=== PATIENT | male | born 1980 | race Caucasian/White ===

== ENCOUNTER → 2020-04-17 19:13 | Outpatient (REF) | payer BC, SELFPAY | LOC: HO.SL 19:13 | PROVIDERS: PCP Internal Medicine; Visit Provider Internal Medicine | DX: G47.33 Obstructive sleep apnea (adult) (pediatric) (principal) | CPT/HCPCS: 95811 ==

== ENCOUNTER 2023-06-29 15:45 | Observation (INO) | payer OTHER, SELFPAY ==
--- NOTE | ~2023-06-29 | CT_ITS ---
EXAMINATION: CT head/brain wo IV con CLINICAL INFORMATION: resolved headache/numbness of hand COMPARISON: Noncontrast head CT 12/17/2019. TECHNIQUE: Contiguous axial imaging was performed from the skull base to vertex without intravenous contrast. Sagittal and coronal reformatted images were obtained. This CT examination was performed using dose optimization techniques as appropriate, variously including the following: * Automated exposure control * Adjustment of mA and/or kV according to patient size (this includes techniques or standardized protocols for targeted exams where dose is matched to indication/reason for exam; i.e. extremities or head) Use of iterative reconstruction technique DLP: 710 mGy-cm FINDINGS: No acute osseous or soft tissue abnormality. Mild mucosal thickening of the right maxillary sinus. The mastoid air cells and visualized portions of the paranasal sinuses are otherwise well aerated. There is no evidence of acute intracranial hemorrhage or territorial infarction. No abnormal mass effect or midline shift is seen. Unchanged small right thalamic lacunar infarct. Major to white matter differentiation is otherwise well preserved. No extra-axial fluid collections are identified. No hydrocephalus. No significant volume loss. Patchy periventricular and deep white matter hypoattenuation is consistent with mild small vessel ischemic changes. CT/CT head/brain wo IV con IMPRESSION: No acute intracranial abnormality including hemorrhage, mass effect, hydrocephalus, or acute territorial edematous infarction.
--- NOTE | ~2023-06-29 | MR_ITS ---
EXAMINATION: MR BRAIN WITHOUT CONTRAST CLINICAL INFORMATION: Left face and arm tingling. COMPARISON: CT head from 06/29/2023. TECHNIQUE: MRI of the brain was obtained using routine sequences without contrast. FINDINGS: No focal restricted diffusion is demonstrated to suggest acute or subacute cerebral ischemia. Chronic lacunar infarct of the right thalamus with hemosiderin staining. No evidence of acute hemorrhagic products on heme-sensitive imaging. Few nonspecific scattered periventricular and deep white matter T2 FLAIR hyperintensities. Proportional prominence of the ventricles and sulcal spaces without evidence of obstructive hydrocephalus. No abnormal mass effect. No midline shift. Normal appearance of the pituitary gland. Normal positioning of the cerebellar tonsils. Normal arterial and venous vascular flow voids are present. Normal, homogeneous marrow signal. Mild mucosal thickening of the paranasal sinuses. No signal abnormalities within the mastoids. MR/MR head/brain wo con IMPRESSION: 1. No acute intracranial abnormalities. 2. Chronic lacunar infarct of the right thalamus. Mild nonspecific white matter changes.
[2023-06-29 15:51] VITALS: BP 166/109; PULSE 95; RESP 18; TEMP 36.6; O2SAT 98; BMI 35.3
--- NOTE | 2023-06-29 15:56 | ECG_ITS ---
Test Reason : nuro Blood Pressure : / mmHG Vent. Rate : 095 BPM Atrial Rate : 095 BPM P-R Int : 152 ms QRS Dur : 094 ms QT Int : 414 ms P-R-T Axes : 033 -27 156 degrees QTc Int : 520 ms Normal sinus rhythm Moderate voltage criteria for LVH, may be normal variant ( R in aVL , Neil product ) Cannot rule out Anterior infarct , age undetermined T wave abnormality, consider lateral ischemia Prolonged QT Abnormal ECG When compared with ECG of 13-NOV-2012 13:41, Inverted T waves have replaced nonspecific T wave abnormality in Lateral leads QT has lengthened Referred By: Hiram Kemp Electronically Signed By:Malik Gurrola
--- NOTE | 2023-06-29 16:01 | ED_ITS ---
HPI - General Adult General Chief complaint: Neuro Symptoms/Deficit Stated complaint: High Blood pressure/thinks he had a stroke? Time Seen by Provider: 06/29/23 17:47 Source: patient Mode of arrival: ambulatory Limitations: no limitations History of Present Illness HPI narrative: Patient comes to the emergency room complaining of a migraine headache. Patient states he has right-sided headache, photophobia, at the same time patient had numbness tingling of the left hand which self resolved as the headache started to become better. Patient states that currently he has no numbness or tingling in the face or extremities, but patient is still complaining of a migraine headache. Patient states he did not take any medication prior to arrival. Related Data Allergies Allergy/AdvReac Type Severity Reaction Status Date / Time No Known Allergies Allergy Unverified 02/03/20 16:50 Review of Systems 2 Review of Systems: Constitutional : No Weight loss, No Fever, No Chills, No Night Sweats, No Fatigue, No Malaise ENT/Mouth : No Hearing loss, No Ear Pain, No Nasal Congestion, No Sinus Pain, No Hoarseness, No sore throat, No Rhinorrhea, No Swallowing Difficulty Eyes: No Eye Pain, No Swelling, No Redness, No Foreign Body, No Discharge, No Vision Changes Cardiovascular : No Chest Pain, No SOB, No Dyspnea on Exertion, No Orthopnea, No Edema, No Palpitations Respiratory : No Cough, No Sputum, No Wheezing, No Smoke Exposure, No Dyspnea Gastrointestinal : No Nausea, No Vomiting, No Diarrhea, No Constipation, No abdominal Pain, No Hematochezia, No Melena Genitourinary : no irregular bleeding, No Dysuria, No Urinary Frequency, No Hematuria, No Urinary Incontinence, No Urgency, No Flank Pain, No Urinary Flow Changes, No Hesitancy Musculoskeletal : No joint pain, No Myalgias, No Joint Swelling Skin : No Skin Lesions, No rash Neuro : Earlier today, patient had facial paresthesias, numbness and tingling in the left arm which started to improve as the headache started to improve Psych : No Anxiety/Panic, No Depression, No SI/HI/AH/VH, No Social Issues, Heme/Lymph: No Bruising, No Bleeding,No Lymphadenopathy Endocrine : No Polyuria, No Polydipsia, No Temperature Intolerance PMFSH Past Medical History Medical History Migraine Social History Social History Use of substances other than those prescribed or required for medical reasons: No Advance Directives: No Advance Directives Information Provided: No Physical Exam ED Vital Signs: Vital Signs - 24 hr 06/29/23 15:51 06/29/23 19:13 Temperature 98 F 98.0 F Pulse Rate 95 79 Respiratory Rate 18 16 Blood Pressure 166/109 H 137/96 H Pulse Oximetry 98 98 Oxygen Delivery Method Room Air Room Air BMI result Body Mass Index 35.3 Const Other: Appearance: Alert. Oriented X3. No acute distress. Eyes: Pupils equal, round and reactive to light. Photophobia ENT: Pharynx normal. Neck: Normal inspection. Neck supple. No lymph nodes noted. No crepitus CVS: Normal heart rate and rhythm. Pulses normal. Normal S1 and S2 Respiratory: No respiratory distress. Breath sounds normal. No Wheezing. No rales Abdomen: Soft and nontender. No rigidity. No distention. Skin: Skin warm and dry. Normal skin color. Normal skin turgor. Extremities: No lower extremity edema. No Lacerations. No Rash Neuro: Oriented X 3. No motor deficit. No sensory deficit. Moving all extremities. No slurred speech. CN 2 through 12 grossly intact Psych: calm, cooperative, normal affect NIH Stroke Scale Internal: Initial- Upon Arrival Level of Consciousness: Alert Level of Consciousness Questions: Answers both questions correctly Level of Consciousness Commands: Performs both tasks correctly Best Gaze: Normal Visual: No visual loss Facial Palsy: Normal Motor Arm (Right): No drift Motor Arm (Left): No drift Motor Leg (Right): No drift Motor Leg (Left): No drift Limb Ataxia: Absent Sensory: Normal Best Language: No aphasia Dysarthia: Normal Extinction and Inattention: No abnormality Score: 0 Course Course Course Narrative: RmE: 42-year-old male history of hypertension and migraines presents to the ED for resolved symptoms of left-sided headache leg facial numbness and left thumb index and ring finger numbness only. Patient states this occurred while at home when he was about to go to sleep and lasted only for 10 minutes and resolved. Patient presently asymptomatic. Patient denies any chest pain or shortness of breath. Neuro exam totally intact. NIH score is 0. Possibly complex migraine exacerbation. Case discussed with Dr. Murry who agrees possibly more migraine exacerbation and not stroke. We will do labs and dry head CT scan. No head CTA Medications Administered Discontinued Medications Generic Name Dose Route Start Last Admin Trade Name Remberto PRN Reason Stop Dose Admin Diphenhydramine HCl 25 mg 06/29/23 17:56 06/29/23 18:11 Diphenhydramine Hcl 50 Mg/Ml Vial IVPUSH 06/29/23 17:57 25 mg ONCE ONE Administration Sodium Chloride 1,000 mls @ 999 mls/hr 06/29/23 17:56 06/29/23 19:09 Ns IVCONT 06/29/23 18:56 Infused .Q1H1M ONE Infusion Metoclopramide HCl 10 mg 06/29/23 17:56 06/29/23 18:11 Metoclopramide Hcl 10 Mg/2 Ml Vial IVPUSH 06/29/23 17:57 10 mg ONCE ONE Administration Morphine Sulfate 2 mg 06/29/23 17:56 06/29/23 18:10 Morphine Sulfate 2 Mg/Ml Cartridge IM 06/29/23 17:57 2 mg ONCE ONE Administration Protocol Medical Decision Making Medical Decision Making MDM Narrative: -patient's NIH score 0 -of patient's symptoms have resolved. Given the history of stroke-like symptoms along with a migraine headache, this was likely secondary to the migraine rather than a CVA/TIA -as the headache started to improve I would self, neurological symptoms also improved -at this time, patient only has a headache, no other neuro deficits or symptoms -patient receiving IV fluids, IV morphine, Reglan and Benadryl -my interpretation of labs, normal hemoglobin, chemistry shows a creatinine of 2.09. According to the patient, he is known to have only 1 kidney. 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 -patient states that to his knowledge, he has never had abnormal kidney labs even with his single kidney. Today, labs are elevated. We will hydrate the patient as mentioned above, and then repeat creatinine -my interpretation of CT scan of the head: No intracranial bleed, no obvious acute territorial infarction -after IV fluids, patient's creatinine did not improve much. I discussed the labs with the patient. Patient is surprised that his creatinine is elevated as he has no knowledge of this being elevated. -patient only has 1 kidney, I discussed the patient with Dr. Sales from the Medicine team, patient being admitted. Differential Diagnosis Differential Diagnoses: The differential diagnosis associated with the presentation includes (Migraine headache, TIA, CVA) Admission/Observation Consideration of admission/observation: Escalation of care including admission/observation considered (Given patient's symptoms, admission was considered) Lab Data MDM Lab Attestation statement: I reviewed the patient's lab results. 06/29/23 16:23 06/29/23 19:12 Labs: Lab Results 06/29/23 06/29/23 Range/Units 16:23 19:12 WBC 7.7 (4.8-10.8) X10*3/uL RBC 4.95 (4.60-5.80) X10*6/uL Hgb 15.1 (14.0-18.0) g/dl Hct 42.8 (42.0-52.0) % MCV 86.5 (80.0-98.0) fL MCH 30.5 (27.0-33.0) pg MCHC 35.3 (31.0-36.0) g/dl RDW 12.2 (11.0-16.0) % Plt Count 360 (160-400) X10*3/uL MPV 9.7 (9.4-12.4) fL Immature Gran % (Auto) 0.3 (0.0-0.4) % Neut % (Auto) 76.6 H (45-73) % Lymph % (Auto) 15.9 L (20-40) % [place] % (Auto) 6.1 (2-11) % Eos % (Auto) 0.6 (0-4) % Baso % (Auto) 0.5 (0-2) % Lymph # (Auto) 1.2 (1.2-4.9) X10*3/uL [place] # (Auto) 0.5 (0.1-1.2) X10*3/uL Eos # (Auto) 0.1 (0.0-0.4) X10*3/uL Baso # (Auto) 0.0 (0.0-0.2) X10*3/uL Abs Immat Gran (auto) 0.02 (0.00-0.03) X10*3/uL Absolute Neuts (auto) 5.9 (2.0-8.3) x10*3/uL Absolute Nucleated RBC 0.000 (0.0-0.012) X10*3/uL Nucleated RBC % (auto) 0.0 (0.0-0.2) /100WBC PT 12.6 (11.1-13.3) SEC INR 1.0 (0.9-1.1) APTT 54.6 H (26.0-36.8) SEC Sodium 141 143 (135-145) mmol/L Potassium 3.3 3.4 (3.3-5.1) mmol/L Chloride 105 106 (96-108) mmol/L Carbon Dioxide 25 26 (22-29) mmol/L Anion Gap 14 14 (12-20) BUN 21 H 22 H (9-16) mg/dL Creatinine 2.09 H 1.91 H (0.5-1.4) mg/dL Estim Creat Clear Calc 48.6 53.1 Estimated GFR 35 39 Random Glucose 107 70 (60-115) mg/dL Calcium 8.9 8.6 (8.4-10.2) mg/dL Total Bilirubin 0.2 (0.0-1.0) mg/dL AST 15 (5-37) U/L ALT 20 (0-40) U/L Alkaline Phosphatase 69 (39-117) U/L Troponin I High Sens 18.3 (<3.5-35.0) ng/L Total Protein 6.6 (6.5-8.0) g/dL Albumin 3.4 L (3.5-5.0) g/dL Independent Interpretation I performed an independent interpretation of an: CT Scan Radiology Impression Discussion of test interpretation with radiology: I have reviewed the radiologist's reading. Radiologist Impression: INDINGS: No acute osseous or soft tissue abnormality. Mild mucosal thickening of the right maxillary sinus. The mastoid air cells and visualized portions of the paranasal sinuses are otherwise well aerated. There is no evidence of acute intracranial hemorrhage or territorial infarction. No abnormal mass effect or midline shift is seen. Unchanged small right thalamic lacunar infarct. Major to white matter differentiation is otherwise well preserved. No extra-axial fluid collections are identified. No hydrocephalus. No significant volume loss. Patchy periventricular and deep white matter hypoattenuation is consistent with mild small vessel ischemic changes. CT/CT head/brain wo IV con IMPRESSION: No acute intracranial abnormality including hemorrhage, mass effect, hydrocephalus, or acute territorial edematous infarction. Critical Care Time Critical Care Time Critical Care Time: Yes Total Critical Care Time: 75 Attestation: I have personally provided critical care time. Time includes review of lab data, radiology results, discussion with consultants, and monitoring for potential decompensation. Intervention performed as documented. Discharge Plan Discharge Clinical Impression: Migraine, Brain TIA, TORITO (acute kidney injury) Patient Disposition: Admitted As Inpatient
[2023-06-29 16:28] LABS: Basophils Percent Auto 0.5 % (0-2); Eosinophils Absolute Auto 0.1 X10*3/uL (0.0-0.4); Eosinophils Percent Auto 0.6 % (0-4); Hematocrit 42.8 % (42.0-52.0); Hemoglobin 15.1 g/dl (14.0-18.0); Imm Gran Abs Auto 0.02 X10*3/uL (0.00-0.03); Imm Gran Pct Auto 0.3 % (0.0-0.4); Lymphocytes Absolute Auto 1.2 X10*3/uL (1.2-4.9); Lymphocytes Percent Auto 15.9 % (20-40); MANUAL DIFF FLAG NO; Mean Corpuscular HGB Conc 35.3 g/dl (31.0-36.0); Mean Corpuscular Hemoglobin 30.5 pg (27.0-33.0); Mean Corpuscular Volume 86.5 fL (80.0-98.0); Mean Platelet Volume 9.7 fL (9.4-12.4); Monocytes Absolute Auto 0.5 X10*3/uL (0.1-1.2); Monocytes Percent Auto 6.1 % (2-11); Neutrophils Absolute Auto 5.9 x10*3/uL (2.0-8.3); Neutrophils Percent Auto 76.6 % (45-73); Platelet Count 360 X10*3/uL (160-400); Red Blood Count 4.95 X10*6/uL (4.60-5.80); Red Cell Distribution Width 12.2 % (11.0-16.0); White Blood Count 7.7 X10*3/uL (4.8-10.8)
[2023-06-29 16:35] LABS: Prothrombin Time 12.6 SEC (11.1-13.3)
[2023-06-29 16:37] LABS: Partial Thromboplastin Time 54.6 SEC (26.0-36.8)
[2023-06-29 16:41] LABS: Alanine Aminotransferase 20 U/L (0-40); Albumin Level 3.4 g/dL (3.5-5.0); Alkaline Phosphatase 69 U/L (39-117); Anion Gap 14 (12-20); Aspartate Amino Transferase 15 U/L (5-37); Bilirubin Total 0.2 mg/dL (0.0-1.0); Blood Urea Nitrogen 21 mg/dL (9-16); Calcium 8.9 mg/dL (8.4-10.2); Carbon Dioxide 25 mmol/L (22-29); Chloride 105 mmol/L (96-108); Creatinine Clr Calc Pharmacy 48.6; Estimated Glomerular Filt Rate 35; Glucose Random 107 mg/dL (60-115); Potassium 3.3 mmol/L (3.3-5.1); Sodium 141 mmol/L (135-145); Total Protein 6.6 g/dL (6.5-8.0)
[2023-06-29 16:48] LABS: Troponin-I High Sensitivity 18.3 ng/L (<3.5-35.0)
[2023-06-29] MEDS: 0.9 % Sodium Chloride 1,000 ML 999 ML IVCONT (18:02)
[2023-06-29] MEDS: Morphine Sulfate 2 MG/ML CARTRIDGE IM (18:10)
[2023-06-29] MEDS: Metoclopramide HCl 10 MG/2 ML VIAL IVPUSH (18:11)
[2023-06-29] MEDS: diphenhydrAMINE HCL 50 MG/ML VIAL 25 MG IVPUSH (18:11)
--- NOTE | 2023-06-29 18:18 | PC.NURSE ---
20g iv inserted YO, fluids and meds given as documented. pt resting quietly at this time.
--- NOTE | 2023-06-29 19:09 | PC.NURSE ---
Assumed care of pt. Pt lying on stretcher, denies any pain or neuro symptoms at this time. Completed MAR reassessment after change of shift. Plan to repeat BMP with completion of IVF, and possible DC.
[2023-06-29 19:13] VITALS: BP 137/96; PULSE 79; RESP 16; TEMP 36.7; O2SAT 98
[2023-06-29 19:34] LABS: Anion Gap 14 (12-20); Blood Urea Nitrogen 22 mg/dL (9-16); Calcium 8.6 mg/dL (8.4-10.2); Carbon Dioxide 26 mmol/L (22-29); Chloride 106 mmol/L (96-108); Creatinine Clr Calc Pharmacy 53.1; Estimated Glomerular Filt Rate 39; Glucose Random 70 mg/dL (60-115); Potassium 3.4 mmol/L (3.3-5.1); Sodium 143 mmol/L (135-145)
[2023-06-29 20:00] VITALS: BP 136/90; PULSE 76; RESP 18; O2SAT 98
[2023-06-29] MEDS: 0.9 % Sodium Chloride 1,000 ML 100 ML IVCONT (21:53)
--- NOTE | 2023-06-29 22:18 | PM.IMHP ---
History of Present Illness Date of Service: 06/29/23 Attending physician on admission: Kedar Panchal Chief Complaint: Headache, facial + hand numbness Robel Medina is a 42 years old man with past medical history significant for CKD stage 3, hypertension and hyperlipidemia presents to ED complaining of right-sided headache associated with left facial and left hand tingling sensation phobia. He denied any, nausea, vomiting, speech difficulty or focal weakness. Gait or swallowing difficulty were not reported. There is no fever or chills. He denied any palpitations, dizziness or loss of consciousness. The cardiopulmonary, gastrointestinal or genitourinary symptoms. He did not report tobacco smoking, alcohol abuse or illicit drug use. In the ED, he was found to have stable vital signs. Last blood pressure is 136/90. Blood workup showed no leukocytosis or electrolyte imbalances. His creatinine to be 2.09 (it was 1.61 in 2019). LFTs are normal. Head CT scan showed no acute. ECG showed normal sinus rhythm her beats per minutes with LVH changes. No obvious acute ischemic changes. QT is prolonged. ED tx: NS 1 L bolus, Benadryl 25 mg IV, more mg IV, Reglan 10 mg IV. Patient is currently asymptomatic (headache completely resolved). Review of Systems Review of Systems: All 12 systems were reviewed and normal except as noted in HPI. [facility] Medical History (Updated 06/29/23 @ 22:46 by Kedar Panchal MD) CKD (chronic kidney disease) stage 3, GFR 30-59 ml/min Restless leg syndrome Hyperlipidemia Essential hypertension Migraine Migraine Social History Use of substances other than those prescribed or required for medical reasons: No Advance Directives: No Advance Directives Information Provided: No Meds Allergies Allergy/AdvReac Type Severity Reaction Status Date / Time No Known Allergies Allergy Unverified 02/03/20 16:50 Active Medications: Current Medications Acetaminophen (Acetaminophen 325 Mg Tablet) 650 mg PO Q6H PRN PRN Reason: Pain, Mild (Pain Scale 1-3) Amlodipine Besylate (Amlodipine Besylate 10 Mg Tablet) 10 mg PO DAILY VERA; Protocol Aspirin (Aspirin Enteric Coated 81 Mg Tablet.) 81 mg PO DAILY VERA Atorvastatin Calcium (Atorvastatin Calcium 80 Mg Tablet) 80 mg PO DAILY VERA Sodium Chloride (Ns) 1,000 mls @ 100 mls/hr IVCONT .Q10H VERA Last Admin: 06/29/23 21:53 Dose: 100 mls/hr Ibuprofen (Ibuprofen 400 Mg Tablet) 400 mg PO Q6H PRN PRN Reason: Migraine Headache Labetalol HCl (Labetalol Hcl 200 Mg Tablet) 200 mg PO BID [facility]; Protocol Ropinirole HCl (Ropinirole Hcl 0.5 Mg Tablet) 0.5 mg PO BEDTIME [facility] Sodium Chloride (0.9 % Sodium Chloride Flush 3 Ml Syringe) 3 ml IVFLUSH QSHIFT [facility] Home Medications Medication Instructions Recorded Confirmed Last Taken Type amlodipine 10 mg tablet 10 mg PO DAILY 06/29/23 06/29/23 Unknown History labetalol 200 mg tablet 200 mg PO BID 06/29/23 06/29/23 Unknown History lisinopril 20 mg tablet 20 mg PO DAILY 06/29/23 06/29/23 Unknown History ropinirole 0.25 mg tablet 0.5 mg PO BEDTIME 06/29/23 06/29/23 1 Day Ago History ~06/28/23 rosuvastatin 40 mg tablet 40 mg PO DAILY 06/29/23 06/29/23 Unknown History Physical Exam Vital Signs and Narrative: Vital Signs: Last Vital Signs Temp 98.0 F 06/29/23 19:13 Pulse 76 06/29/23 20:00 Resp 18 06/29/23 20:00 BP 136/90 H 06/29/23 20:00 Pulse Ox 98 06/29/23 20:00 O2 Del Method Room Air 06/29/23 19:13 BMI result Body Mass Index 35.3 Constitutional - Awake and Alert, No apparent distress Eyes - PERRLA, EOMI Cardiovascular - S1S2, RRR, No edema Respiratory - Normal lung expansion, Normal respiratory effort, No respiratory distress, CTA bilaterally Gastrointestinal - NT / ND; +BS; No rebound or guarding Extremities - no calf tenderness bilaterally, no swelling Musculoskeletal - Normal inspection, normal ROM Skin - Warm/Dry Neurological - Alert & oriented x3, CN II-XII in tact, 5/5 strength BUE and BLE Psychological - Appropriate affect Results Labs 06/29/23 16:23 06/29/23 19:12 Labs: Laboratory Results - last 24 hr 06/29/23 06/29/23 16:23 19:12 MCV 86.5 MCH 30.5 MCHC 35.3 RDW 12.2 Plt Count 360 MPV 9.7 Immature Gran % (Auto) 0.3 Neut % (Auto) 76.6 H Lymph % (Auto) 15.9 L [place] % (Auto) 6.1 Eos % (Auto) 0.6 Baso % (Auto) 0.5 Lymph # (Auto) 1.2 [place] # (Auto) 0.5 Eos # (Auto) 0.1 Baso # (Auto) 0.0 Abs Immat Gran (auto) 0.02 Absolute Neuts (auto) 5.9 Absolute Nucleated RBC 0.000 Nucleated RBC % (auto) 0.0 PT 12.6 INR 1.0 APTT 54.6 H Anion Gap 14 14 Estim Creat Clear Calc 48.6 53.1 Estimated GFR 35 39 Random Glucose 107 70 Calcium 8.9 8.6 Total Bilirubin 0.2 AST 15 ALT 20 Alkaline Phosphatase 69 Total Protein 6.6 Albumin 3.4 L Imaging Radiologist's Impressions: Impressions Head CT 06/29/23 16:11 IMPRESSION: No acute intracranial abnormality including hemorrhage, mass effect, hydrocephalus, or acute territorial edematous infarction. Assessment and Plan (1) TORITO (acute kidney injury): Status: Acute (2) Migraine: Qualifiers: Migraine type: unspecified Status migrainosus presence: without status migrainosus Intractability: not intractable Qualified Code(s): G43.909 - Migraine, unspecified, not intractable, without status migrainosus Status: Acute (3) Essential hypertension: Status: Acute (4) Hyperlipidemia: Qualifiers: Hyperlipidemia type: unspecified Qualified Code(s): E78.5 - Hyperlipidemia, unspecified Status: Acute (5) Restless leg syndrome: Status: Acute Plan Robel Medina is a 42 years old man presents with cough Headache associated with left-sided facial and hand numbness, resolved. Complicated migraine versus TIA. Keeping observation. Neuro checks. Continue aspirin and statin. Check lipid panel hemoglobin A1c. Check brain MRI and TTE w/bubble study. Elevated creatinine. CKD versus acute on chronic renal failure. No hyperkalemia, fluid overload or metabolic acidosis. Unclear if this is his baseline (last was 5 days ago - 1.6). Keep in observation. Hold lisinopril. IV fluids. Recheck creatinine in the morning. Prolonged QT, 520 ms. Causes unclear. Not med induced. Continue to monitor. Recheck ECG in the morning. Avoid medications that could induce prolonged QT. Hyperlipidemia. Continue statin. Essential hypertension. Continue labetalol and amlodipine. DVT prophylaxis: Low risk, patient ambulating well. Code status: Full. Quality Stroke Does the patient have a stroke diagnosis?: No VTE Prior VTE?: No VTE Risk Level:: Medical - low VTE Device Contraindication: Treatment Not Indicated VTE Drug Contraindication: Treatment Not Indicated
[2023-06-29] MEDS: rOPINIRole HCL 0.5 MG TABLET PO (22:30)
[2023-06-29] MEDS: Labetalol HCL 200 MG TABLET PO (22:30)
[2023-06-29 23:10] VITALS: BP 138/94; PULSE 75; RESP 14; TEMP 36.6; O2SAT 92
[2023-06-30] VITALS (8 sets, daily range): BP systolic 133–162; BP diastolic 70–98; PULSE 79–101; RESP 16–18; TEMP 36–36.2; O2SAT 95–98; BMI 35.4
[2023-06-30 06:17] LABS: Anion Gap 11 (12-20); Blood Urea Nitrogen 21 mg/dL (9-16); Calcium 8.3 mg/dL (8.4-10.2); Carbon Dioxide 23 mmol/L (22-29); Chloride 110 mmol/L (96-108); Cholesterol 284 mg/dL (<200); Creatinine Clr Calc Pharmacy 56.5; Estimated Glomerular Filt Rate 41; Glucose Random 88 mg/dL (60-115); HDL Cholesterol 32 mg/dL (>40); Potassium 3.2 mmol/L (3.3-5.1); Sodium 141 mmol/L (135-145); Triglycerides 426 mg/dL (<150)
[2023-06-30 06:38] LABS: Estimated Average Glucose 103 mg/dL; Hemoglobin A1C 114.2409 umol/L; Hemoglobin A1c % 5.2 % (<6.0)
--- NOTE | 2023-06-30 07:00 | ECG_ITS ---
Test Reason : NEURO Blood Pressure : / mmHG Vent. Rate : 077 BPM Atrial Rate : 077 BPM P-R Int : 160 ms QRS Dur : 104 ms QT Int : 468 ms P-R-T Axes : 031 -27 155 degrees QTc Int : 529 ms Normal sinus rhythm Moderate voltage criteria for LVH, may be normal variant ( R in aVL , Neil product ) T wave abnormality, consider anterolateral ischemia Prolonged QT Abnormal ECG When compared with ECG of 29-JUN-2023 16:31, No significant change was found Referred By: Kedar Panchal Electronically Signed By:Malik Gurrola
--- NOTE | 2023-06-30 07:00 | CA_ITS ---
Transthoracic Echocardiogram Patient (Last, First, Middle): Robel Medina, Gender: Male Date of : 1980 Age: 42 Procedure Date: 06/30/2023 Procedure Type: Transthoracic Echocardiogram Location: S3E Height: 165.1 cm Weight: 96.16 kg BSA: 2.03 m2 Heart Rate: 81 bpm BP: 136 / 83 mmHg [employer] Pumper: SB Referring MD: Kedar Panchal MD Symptoms: TIA symptoms Study Quality: Adequate/w bubble study ECG Rhythm: Sinus Conclusions: - Normal left ventricular cavity size. The left ventricular systolic function is normal. The visually estimated ejection fraction is between 60-65%. Abnormal diastolic function is noted. Spectral Doppler is indicative of a pseudonormal filling pattern. Elevated filling pressures. There is severe septal asymmetric hypertrophy. Reduced global longitudinal strain 11.5%. - Normal right ventricular cavity size and systolic function. Findings Left Ventricle Normal left ventricular cavity size. The left ventricular systolic function is normal. The visually estimated ejection fraction is between 60-65%. Abnormal diastolic function is noted. Spectral Doppler is indicative of a pseudonormal filling pattern. Elevated filling pressures. There is severe septal asymmetric hypertrophy. Reduced global longitudinal strain -11.5%. Right Ventricle Normal right ventricular cavity size and systolic function. Atria The left atrium is normal in size. There is no evidence of interatrial shunt by agitated saline. The right atrium is normal in size. Aortic Valve Normal aortic valve structure and function. There is no aortic valve stenosis. There is no aortic valve regurgitation. Mitral Valve Normal mitral valve structure and function. There is no mitral valve regurgitation. There is no mitral valve stenosis. Pulmonic Valve The pulmonic valve is likely normal. Tricuspid Valve Normal tricuspid valve structure. There is no tricuspid valve regurgitation. Tricuspid regurgitation envelope is inadequate for calculation of right ventricular systolic pressure. Normal right atrial pressure. Great Vessels There is mild dilatation of the ascending aorta measuring 3.80 cm. The visualized portions of the pulmonary artery and branches are normal. Venous The inferior vena cava is normal in size and collapses greater than 50% with inspiration. Pericardium/Pleural There is no evidence of pericardial effusion. Prior Study Comparison No prior study available for comparison. Measurements 2D Linear Measurements IVSd: 2.15 0.6-0.9/0.6-1.0 cm LVIDd: 4.92 3.9-5.3/4.2-5.9 cm LVIDd Index: 2.42 2.4-3.2/2.2-3.1 cm/m2 LVIDs: 3.24 2.0-3.6 cm LVPWd: 0.80 0.7-1.1 cm LA Diam: 4.20 2.7-3.8/3.0-4.0 cm LAIDs Index: 2.07 1.5-2.3 cm/m2 LV Mass: 383.86 67-162/88-224 g LV Mass Index: 189.09 43-95/49-115 g/m2 LVOT Diam: 2.30 3.0+(-)1.3 cm 2D Systolic Function EF 4C: 49.50 >55% EF 2C: 64.50 >55% EF BiP: 56.10 >55% Mitral Valve MV Pk E: 0.96 MV PK A: 0.77 MV Decel Time: 166.00 E/A: 1.30 E'Lateral: 5.11 E'Medial: 4.79 E/E' Med: 20.10 E/E' Lat: 18.90 PHT: 49.00 MVA PHT: 4.49 Decel [place]: 5.80 Aortic Valve AoV Pk Tao: 1.46 AoV Pk Grad: 9.00 LOWELL: 3.50 LVOT LVOT Pk Tao: 1.26 LVOT Mn Tao: 0.89 LVOT VTI: 0.22 LVOT Pk Grad: 6.00 LVOT Mn Grad: 4.00 LVOT Diam: 2.30 LVOT Area: 4.15 Diastolic Function MV Pk E: 0.96 MV Pk A: 0.77 E/A: 1.30 E'Medial: 4.79 E/E' Med: 20.10 E' Laterial: 5.11 E/E' Lat: 18.90 Right Ventricle TAPSE (mm): 20.30 TVS' Tao: 15.70 Tricuspid Valve RA Press: 8.00 Great Vessels Aorta Sinus of Valsalva: 3.20 2.0-3.5 cm Ao Asc: 3.80 2.1-3.4 cm Pulmonary Veins Pulm Vein S/D 1.50 Pulmonary Valve PV Pk Tao: 1.15 Peak PV Grad: 5.00 Updated in Other Vendor System with Status of Final Malik Gurrola MD electronically signed on 06/30/2023 3:18:34 PM with status of Final
[2023-06-30] MEDS: 0.9 % Sodium Chloride 1,000 ML 100 ML IVCONT (07:53)
[2023-06-30] MEDS: Atorvastatin Calcium 80 MG TABLET PO (07:56)
[2023-06-30] MEDS: Potassium Chloride ER 20 MEQ TAB.ER.PRT 40 MEQ PO (07:56)
[2023-06-30] MEDS: amLODIPine Besylate 10 MG TABLET PO (07:56)
[2023-06-30] MEDS: Aspirin Enteric Coated 81 MG TABLET.DR PO (07:56)
[2023-06-30] MEDS: Labetalol HCL 200 MG TABLET PO ×2 (07:57→20:21)
--- NOTE | 2023-06-30 08:30 | PHA.MEDREC ---
Pharmacy Consult ? Medication Reconciliation Pharmacy has completed the medication reconciliation with pt, pt had list as reflected.
--- NOTE | 2023-06-30 09:42 | MHC.CLN ---
NUTRITION LABS REVIEWED. POTASSIUM=3.2 L. DELETED LOW POTASSIUM FROM DIET ORDER.
--- NOTE | 2023-06-30 09:52 | MHC.CM.PN ---
pt is independent expects to be dcd today home no servies
--- NOTE | 2023-06-30 10:31 | P.PNIM_ITS ---
Subjective Subjective Date of Service: 06/30/23 Review of Systems Follow up facial numbness doing better symptoms resolved Physical Exam 2 Vital Signs: Vital Signs: Last Vital Signs Temp 97 F 06/30/23 07:03 Pulse 101 H 06/30/23 08:59 Resp 17 06/30/23 07:03 BP 136/83 06/30/23 07:03 Pulse Ox 98 06/30/23 08:59 O2 Del Method Room Air 06/30/23 07:03 BMI result Body Mass Index 35.4 Appearing in no acute distress lung sounds are clear to auscultation heart regular rate rhythm, clear S1, S2 positive bowel sounds, abdomen is soft, nontender neuro patient is alert x3, no focal deficits Objective Data Active Medications Acetaminophen (Acetaminophen 325 Mg Tablet) 650 mg PO Q6H PRN PRN Reason: Pain, Mild (Pain Scale 1-3) Amlodipine Besylate (Amlodipine Besylate 10 Mg Tablet) 10 mg PO DAILY [facility]; Protocol Last Admin: 06/30/23 07:56 Dose: 10 mg Documented By: SEAN Aspirin (Aspirin Enteric Coated 81 Mg Tablet.Dr) 81 mg PO DAILY [facility] Last Admin: 06/30/23 07:56 Dose: 81 mg Documented By: SEAN Atorvastatin Calcium (Atorvastatin Calcium 80 Mg Tablet) 80 mg PO DAILY [facility] Last Admin: 06/30/23 07:56 Dose: 80 mg Documented By: SEAN Sodium Chloride (Ns) 1,000 mls @ 100 mls/hr IVCONT .Q10H [facility] Last Admin: 06/30/23 07:53 Dose: 100 mls/hr Documented By: SEAN Ibuprofen (Ibuprofen 400 Mg Tablet) 400 mg PO Q6H PRN PRN Reason: Migraine Headache Labetalol HCl (Labetalol Hcl 200 Mg Tablet) 200 mg PO BID [facility]; Protocol Last Admin: 06/30/23 07:57 Dose: 200 mg Documented By: SEAN Ropinirole HCl (Ropinirole Hcl 0.5 Mg Tablet) 0.5 mg PO BEDTIME [facility] Last Admin: 06/29/23 22:30 Dose: 0.5 mg Documented By: BETH Sodium Chloride (0.9 % Sodium Chloride Flush 3 Ml Syringe) 3 ml IVFLUSH QSHIFT [facility] Last Admin: 06/30/23 07:08 Dose: Not Given Documented By: SEAN Non-Admin Reason: IV Running Labs 06/29/23 16:23 06/30/23 04:01 Labs: Laboratory Results - last 24 hr 06/29/23 06/29/23 06/30/23 16:23 19:12 04:01 MCV 86.5 MCH 30.5 MCHC 35.3 RDW 12.2 Plt Count 360 MPV 9.7 Immature Gran % (Auto) 0.3 Neut % (Auto) 76.6 H Lymph % (Auto) 15.9 L [place] % (Auto) 6.1 Eos % (Auto) 0.6 Baso % (Auto) 0.5 Lymph # (Auto) 1.2 [place] # (Auto) 0.5 Eos # (Auto) 0.1 Baso # (Auto) 0.0 Abs Immat Gran (auto) 0.02 Absolute Neuts (auto) 5.9 Absolute Nucleated RBC 0.000 Nucleated RBC % (auto) 0.0 PT 12.6 INR 1.0 APTT 54.6 H Anion Gap 14 14 11 L Estim Creat Clear Calc 48.6 53.1 56.5 Estimated GFR 35 39 41 Random Glucose 107 70 88 Estimat Average Glucose 103 Hemoglobin A1c % 5.2 Calcium 8.9 8.6 8.3 L Total Bilirubin 0.2 AST 15 ALT 20 Alkaline Phosphatase 69 Total Protein 6.6 Albumin 3.4 L Triglycerides 426 H Cholesterol 284 H LDL Cholesterol, Calc TNP HDL Cholesterol 32 L Assessment and Plan (1) Migraine: Status: Acute (2) Brain TIA: Status: Acute Plan 42 year old man admitted with Left sided facial and hand numbness Headache with facial and hand numbness symptoms resolved Migraines vs TIA Neuro consultation MRI and echo with bubble TORITO on ckd 3 creat trending down HLD statin HTN continue amlodipine and labetolol DVT prophylaxis with heparin attending Dr. Aquino full code Quality Stroke Does the patient have a stroke diagnosis?: No VTE Prior VTE?: No VTE Risk Level:: Medical - low VTE Device Contraindication: Treatment Not Indicated VTE Drug Contraindication: Treatment Not Indicated
--- NOTE | 2023-06-30 14:22 | PM.NEUROCN ---
History of Present Illness Data of Consult Service Date: 06/30/23 Primary Care Provider: None Physician HPI Reason for consult: Headache 42 years old man with hypertension and renal insufficiency came to hospital with a headache and numbness and tingling. When I saw him he said that there was no headache any was fine. He said that he was having headaches few times a month and each time it was lasting for few hours. Pain was usually frontal throbbing in nature. Review of Systems Review of Systems: No recent cold or flu-like illness or head trauma. [facility] Past Medical History Medical History (Updated 06/30/23 @ 14:25 by Kajal Gamboa MD) CKD (chronic kidney disease) stage 3, GFR 30-59 ml/min Restless leg syndrome Hyperlipidemia Essential hypertension Migraine Migraine Social History Social History Patient Tobacco Use Status: Never used Tobacco service: No Meds Allergies Allergy/AdvReac Type Severity Reaction Status Date / Time No Known Allergies Allergy Unverified 02/03/20 16:50 Active Medications: Current Medications Acetaminophen (Acetaminophen 325 Mg Tablet) 650 mg PO Q6H PRN PRN Reason: Pain, Mild (Pain Scale 1-3) Amlodipine Besylate (Amlodipine Besylate 10 Mg Tablet) 10 mg PO DAILY [facility]; Protocol Last Admin: 06/30/23 07:56 Dose: 10 mg Aspirin (Aspirin Enteric Coated 81 Mg Tablet.) 81 mg PO DAILY [facility] Last Admin: 06/30/23 07:56 Dose: 81 mg Atorvastatin Calcium (Atorvastatin Calcium 80 Mg Tablet) 80 mg PO DAILY [facility] Last Admin: 06/30/23 07:56 Dose: 80 mg Sodium Chloride (Ns) 1,000 mls @ 100 mls/hr IVCONT .Q10H [facility] Last Admin: 06/30/23 07:53 Dose: 100 mls/hr Ibuprofen (Ibuprofen 400 Mg Tablet) 400 mg PO Q6H PRN PRN Reason: Migraine Headache Labetalol HCl (Labetalol Hcl 200 Mg Tablet) 200 mg PO BID [facility]; Protocol Last Admin: 06/30/23 07:57 Dose: 200 mg Ropinirole HCl (Ropinirole Hcl 0.5 Mg Tablet) 0.5 mg PO BEDTIME [facility] Last Admin: 06/29/23 22:30 Dose: 0.5 mg Sodium Chloride (0.9 % Sodium Chloride Flush 3 Ml Syringe) 3 ml IVFLUSH QSHIFT [facility] Last Admin: 06/30/23 07:08 Dose: Not Given Home Medications Medication Instructions Recorded Confirmed Last Taken Type amlodipine 10 mg tablet 10 mg PO DAILY 06/29/23 06/29/23 Unknown History labetalol 200 mg tablet 200 mg PO BID 06/29/23 06/29/23 Unknown History lisinopril 20 mg tablet 20 mg PO DAILY 06/29/23 06/29/23 Unknown History ropinirole 0.25 mg tablet 0.5 mg PO BEDTIME 06/29/23 06/29/23 1 Day Ago History ~06/28/23 rosuvastatin 40 mg tablet 40 mg PO DAILY 06/29/23 06/29/23 Unknown History Physical Exam Vital Signs: Vital Signs: Last Vital Signs Temp 97 F 06/30/23 07:03 Pulse 101 H 06/30/23 08:59 Resp 17 06/30/23 07:03 BP 136/83 06/30/23 07:03 Pulse Ox 98 06/30/23 08:59 O2 Del Method Room Air 06/30/23 07:03 BMI result Body Mass Index 35.4 Neuro: Other: He is alert and awake with normal spontaneity of speech fluency comprehension and affect. His moderately obese. Results Labs 06/29/23 16:23 06/30/23 04:01 Labs: Short CBC 06/29/23 Range/Units 16:23 WBC 7.7 (4.8-10.8) X10*3/uL Hgb 15.1 (14.0-18.0) g/dl Hct 42.8 (42.0-52.0) % Plt Count 360 (160-400) X10*3/uL BMP 06/29/23 06/29/23 06/30/23 16:23 19:12 04:01 Sodium 141 143 141 Potassium 3.3 3.4 3.2 L Chloride 105 106 110 H Carbon Dioxide 25 26 23 BUN 21 H 22 H 21 H Creatinine 2.09 H 1.91 H 1.80 H Calcium 8.9 8.6 8.3 L Liver Function 06/29/23 Range/Units 16:23 Total Bilirubin 0.2 (0.0-1.0) mg/dL AST 15 (5-37) U/L ALT 20 (0-40) U/L Alkaline Phosphatase 69 (39-117) U/L Albumin 3.4 L (3.5-5.0) g/dL Noncontrast head CT revealed a right subcortical deep hypodensity suggestive of ischemic infarction of chronic nature Assessment and Plan (1) Migraine: Qualifiers: Intractability: not intractable Migraine type: migraine (< 15 days per month) without aura Status migrainosus presence: without status migrainosus Qualified Code(s): G43.009 - Migraine without aura, not intractable, without status migrainosus Status: Acute 42 years old man with uncontrolled hypertension, renal insufficiency, and migraine without aura. His head CT also revealed a chronic small likely atherothrombotic hypertension related ischemic infarction. He should be educated about all this. Control of blood pressure with anti-platelet agent and control of other vascular risk factors including lipids is recommended. As far as migraine is concerned, I recommend starting topiramate 25 mg at night. (2) Cerebral microvascular disease: Status: Acute Procedures Date of Service Date of Service: 06/30/23
[2023-06-30] MEDS: rOPINIRole HCL 0.5 MG TABLET PO (20:21)
[2023-06-30] MEDS: Topiramate 25 MG TABLET PO (20:21)
[2023-06-30] MEDS: Acetaminophen 325 MG TABLET 650 MG PO (20:21)
[2023-06-30] MEDS: 0.9 % Sodium Chloride Flush 3 ML SYRINGE IVFLUSH (20:23)
[2023-07-01 03:50] VITALS: BP 166/90; PULSE 84; RESP 18; TEMP 36.2; O2SAT 97
--- NOTE | 2023-07-01 07:20 | P.DS_ITS ---
DS: Providers Provider Date of Service: 07/01/23 Date of admission: 06/29/23 21:37 Primary care physician: None Physician Consults: 06/30/23 10:33 Consult to Neurology Routine Consulting Provider: [facility] Reason for consultation: headache, facial and hand numbness Has provider been notified: No DS: Diagnosis Discharge Diagnosis (1) Migraine: Status: Acute (2) Cerebral microvascular disease: Status: Acute DS: Summary Hospital Course Hospital Course: History and physical as per admitting provider. Robel Medina is a 42 years old man with past medical history significant for CKD stage 3, hypertension and hyperlipidemia presents to ED complaining of right-sided headache associated with left facial and left hand tingling sensation phobia. He denied any, nausea, vomiting, speech difficulty or focal weakness. Gait or swallowing difficulty were not reported. There is no fever or chills. He denied any palpitations, dizziness or loss of consciousness. The cardiopulmonary, gastrointestinal or genitourinary symptoms. He did not report tobacco smoking, alcohol abuse or illicit drug use. In the ED, he was found to have stable vital signs. Last blood pressure is 136/90. Blood workup showed no leukocytosis or electrolyte imbalances. His creatinine to be 2.09 (it was 1.61 in 2019). LFTs are normal. Head CT scan showed no acute. ECG showed normal sinus rhythm her beats per minutes with LVH changes. No obvious acute ischemic changes. QT is prolonged. ED tx: NS 1 L bolus, Benadryl 25 mg IV, more mg IV, Reglan 10 mg IV. Patient is currently asymptomatic (headache completely resolved). 42-year-old man treated for headache with facial and hand numbness. Symptoms resolved pretty quickly just after admission. MRI showed chronic lacunar infarct of the right thalamus with nonspecific white matter changes but no acute abnormality. Echo with bubble study was normal. Patient seen evaluated by Neurology who thought symptoms were related to chronic small a thorough thrombotic hypertension related ischemic infarctions with recommendation for better blood pressure control, antiplatelet therapy and lipid therapy. Patient was started on topiramate 25 mg at bedtime for migraine headaches. Patient was educated on the importance of taking medications on a daily basis for his blood pressure, increasing physical activity and healthy diet. Plan is for discharge home. TORITO on CKD. Creatinine trended down after IV fluids Hyperlipidemia. Continue statin Hypertension. Continue amlodipine and labetalol Time Attestation Discharge coordination time: Greater than 30 minutes Quality: Safe Use of Opioids Does Pt have an Active Cancer Diagnosis on the Problem List?: No Quality: Stroke Does the patient have a stroke diagnosis?: No Physical Exam Vital Signs: Vital Signs: Last Vital Signs Temp 97.1 F 07/01/23 03:50 Pulse 84 07/01/23 03:50 Resp 18 07/01/23 03:50 BP 166/90 H 07/01/23 03:50 Pulse Ox 97 07/01/23 03:50 O2 Del Method Room Air 07/01/23 03:50 BMI result Body Mass Index 35.4 Appearing in no acute distress head is normocephalic atraumatic eyes pupils are PERRLA sclera is anicteric mouth throat mucous membranes are intact and moist neck is supple no lymphadenopathy, no JVD noted lung sounds are clear to auscultation heart regular rate rhythm, clear S1, S2 positive bowel sounds, abdomen is soft, nontender neuro patient is alert x3, no focal deficits Discharge Plan Discharge Anticipated Discharge Date/Time: 07/01/23 07:18 Patient Disposition: Home, Self-Care Discharge Diagnosis: Migraine headache Hypertension Discharge Medications: New aspirin 81 mg Tablet,Delayed Release (Dr/Ec) 81 mg PO DAILY Qty: 30 0RF topiramate 25 mg Tablet 25 mg PO BEDTIME Qty: 30 0RF Continued amlodipine 10 mg tablet 10 mg PO DAILY labetalol 200 mg tablet 200 mg PO BID lisinopril 20 mg tablet 20 mg PO DAILY ropinirole 0.25 mg tablet 0.5 mg PO BEDTIME rosuvastatin 40 mg tablet 40 mg PO DAILY Discharge Orders: Discharge Order (Routine); Ordered 07/01/23 Ordered By: Ella Chamberlain Diet: Advance to usual diet Activity on Discharge: As tolerated Stand Alone Forms: Patient Portal Discharge page Care Plan Goals: Take medications daily, increase physical activity and follow a healthy diet Health Concerns: Migraine headache Hypertension Plan of Treatment: Follow-up with primary care provider as needed Take all medications as prescribed Assessment: Discharge summary
[2023-07-01 07:49] VITALS: BP 160/100; PULSE 86; RESP 18; TEMP 36.3; O2SAT 96
[2023-07-01] MEDS: Labetalol HCL 200 MG TABLET PO (08:03)
[2023-07-01] MEDS: amLODIPine Besylate 10 MG TABLET PO (08:03)
[2023-07-01] MEDS: Aspirin Enteric Coated 81 MG TABLET.DR PO (08:03)
[2023-07-01] MEDS: 0.9 % Sodium Chloride Flush 3 ML SYRINGE IVFLUSH (08:03)
[2023-07-01] MEDS: Atorvastatin Calcium 80 MG TABLET PO (08:03)
--- NOTE | 2023-07-01 09:53 | MHC.CM.PN ---
pt dcd home no slilled sevies ordered by has own ride
== END 2023-07-01 10:24 | disposition home or self-care (01) ==
LOC: HO.ED 21:01 → HO.EDOVER 21:46 → HO.S3 23:39
PROVIDERS: Physician Assistant; Admitting Provider Internal Medicine; Emergency Provider Emergency Medicine; Visit Provider Nurse Practitioner Acute Care
DX: G43.009 Migraine without aura, not intractable, without status migrainosus (principal); I67.9 Cerebrovascular disease, unspecified; R20.0 Anesthesia of skin; I12.9 Hypertensive chronic kidney disease with stage 1 through stage 4 chronic kidney disease, or unspecified chronic kidney disease; N18.30 Chronic kidney disease, stage 3 unspecified; N17.9 Acute kidney failure, unspecified; E78.5 Hyperlipidemia, unspecified; G25.81 Restless legs syndrome; R94.31 Abnormal electrocardiogram [ECG] [EKG]; Z79.899 Other long term (current) drug therapy
CPT/HCPCS: 36415; 70450; 70551; 80048; 80053; 80061; 83036; 84484; 85025; 85610; 85730; 93005; 93306; 93356; 96361; 96372; 96374; 96375; 97161; 97165; 99221; 99285; J1200; J2270; J2765

== ENCOUNTER → 2023-06-29 15:56 | Outpatient (BNV) | payer OTHER, SELFPAY | PROVIDERS: Admitting Provider Internal Medicine; Emergency Provider Emergency Medicine; Visit Provider Internal Medicine Cardiovascular Disease | DX: I45.81 Long QT syndrome (principal) | CPT/HCPCS: 93010 ==

== ENCOUNTER 2023-06-29 21:37 | Outpatient (BNV) | payer OTHER, SELFPAY | END 2023-06-30 07:00 | PROVIDERS: Admitting Provider Internal Medicine; Emergency Provider Emergency Medicine; Visit Provider Internal Medicine Cardiovascular Disease | DX: G45.9 Transient cerebral ischemic attack, unspecified (principal); I51.9 Heart disease, unspecified | CPT/HCPCS: 93010; 93306 ==

== ENCOUNTER → 2023-06-29 21:37 | Outpatient (BNV) | payer OTHER, SELFPAY | PROVIDERS: Admitting Provider Internal Medicine; Emergency Provider Emergency Medicine; Visit Provider Internal Medicine | DX: G43.009 Migraine without aura, not intractable, without status migrainosus (principal); I67.89 Other cerebrovascular disease | CPT/HCPCS: 99222; 99232; 99238 ==

== ENCOUNTER → 2023-06-29 21:37 | Outpatient (BNV) | payer OTHER, SELFPAY | PROVIDERS: Admitting Provider Internal Medicine; Emergency Provider Emergency Medicine; Visit Provider Psychiatry & Neurology Neurology | DX: G43.009 Migraine without aura, not intractable, without status migrainosus (principal); I67.89 Other cerebrovascular disease | CPT/HCPCS: 99222 ==